=== PATIENT | male | born 1950 | race Caucasian/White ===

== ENCOUNTER 2024-01-26 07:34 | Day surgery (SDC) | payer OTHER ==
[2024-01-26] VITALS (9 sets, daily range): BP systolic 116–127; BP diastolic 59–82; PULSE 59–69; RESP 14–17; TEMP 98.1; O2SAT 95–98
[~2024-01-26] VITALS: Ht 205.7 cm; Wt 106.5 kg
[2024-01-26] MEDS ORDERED: FLO0.4C PO (08:10)
[2024-01-26] MEDS ORDERED: WARF1TAB83 PO (08:10)
[2024-01-26] MEDS ORDERED: ATOR40TA72 PO (08:10)
[2024-01-26] MEDS ORDERED: WARF-55 PO (08:10)
[2024-01-26] MEDS ORDERED: PHEN100C12 PO (08:10)
[2024-01-26] MEDS ORDERED: ATRNS BOTHNARES (08:10)
[2024-01-26 08:58] LABS: BASOPHILS % (AUTO) 0.5 % (0-1); EOSINOPHILS # (AUTO) 0.1 X10'3 (0-0.9); EOSINOPHILS % (AUTO) 1.7 % (0-6); HEMATOCRIT 46.9 % (42.0-52.0); HEMOGLOBIN 15.8 g/dl (14.0-17.9); LYMPHOCYTES # (AUTO) 2.3 X10'3 (1.1-4.8); MEAN CORPUSCULAR HEMOGLOBIN 30.2 PG (27.0-31.0); MEAN CORPUSCULAR HGB CONC 33.6 g/dL (33.0-36.5); MEAN CORPUSCULAR VOLUME 89.7 FL (78-98); MEAN PLATELET VOLUME 9.2 FL (7.4-10.4); MONOCYTES # (AUTO) 0.8 X10'3 (0-0.9); MONOCYTES % (AUTO) 9.9 % (2-12); NEUTROPHILS % (AUTO) 59.9 % (42-75); PLATELET COUNT 183 X10'3 (140-440); RED BLOOD COUNT 5.22 X10'6 (4.70-6.10); RED CELL DISTRIBUTION WIDTH 14.1 % (11.5-14.5); WHITE BLOOD COUNT 8.4 X10'3 (4.5-11.0)
[2024-01-26 09:08] LABS: ANION GAP 9 (8-16); BLOOD UREA NITROGEN 15 MG/DL (7-18); BUN/CREATININE RATIO 18.1 (10.0-20.0); CALCIUM 8.7 MG/DL (8.5-10.1); CHLORIDE 102 MMOL/L (99-107); CREATININE 0.83 MG/DL (0.60-1.10); GLUCOSE 105 MG/DL (70-104); INR 1.5 INR; MAGNESIUM 2.1 MG/DL (1.5-2.4); PROTHROMBIN TIME 15.4 SECONDS (9.0-12.0); SODIUM 140 MMOL/L (135-145); eCRCL 105 ML/MIN; eGFR 90 ML/MIN
[2024-01-26] MEDS: normal saline 1000ml 1,000 ML IV SCH (09:44)
[2024-01-26] MEDS: vancomycin 1,500 MG in NS 300ml IV soln IV ONE (09:44)
[2024-01-26] MEDS ORDERED: fentaNYL/PF 50MCG/1 ML 2ML syringe ONE (09:53)
[2024-01-26] MEDS ORDERED: midazolam 1 mg/ML 2ml injection ONE ×3 (09:53→10:42)
[2024-01-26] MEDS ORDERED: LIDOcaine 1% W/epiNEPHrine 1:100,000 20ml vial ONE (09:53)
[2024-01-26] MEDS ORDERED: vancomycin 1,000mg inj ONE (09:53)
[2024-01-26] MEDS ORDERED: normal saline 1000ml 1,000 ML IV SCH (12:02)
[2024-01-26] MEDS ORDERED: HYDROcodone/acetaminophen 10/325mg tab PO PRN (12:05)
[2024-01-26] MEDS ORDERED: HYDROcodone/acetaminophen 5mg/325mg tablet PO PRN (12:05)
[2024-01-26] MEDS: clindamycin-Cleocin 900mg/D5W 50 ML IV ONE (12:51)
== END 2024-01-26 14:05 | disposition home or self-care (01) ==
LOC: SSTAY O 07:34
PROVIDERS: ATTEND Internal Medicine Cardiovascular Disease
DX: Z45.010 Encounter for checking and testing of cardiac pacemaker pulse generator [battery] (principal); I10 Essential (primary) hypertension; E11.9 Type 2 diabetes mellitus without complications; E78.5 Hyperlipidemia, unspecified; F41.9 Anxiety disorder, unspecified; E66.3 Overweight; Z79.82 Long term (current) use of aspirin; Z79.899 Other long term (current) drug therapy; Z98.41 Cataract extraction status, right eye; Z98.42 Cataract extraction status, left eye; Z68.25 Body mass index [BMI] 25.0-25.9, adult; Z82.49 Family history of ischemic heart disease and other diseases of the circulatory system
CPT/HCPCS: 33228; 36415; 80048; 83735; 85025; 85610; 93005; 99152; 99153; C1785; J2250; J3010; J3370; J3490; J7030